=== PATIENT | female | born 1995 | race Caucasian/White ===

== ENCOUNTER 2017-05-11 23:03 | Emergency (ER) | payer BC ==
--- NOTE | 2017-05-12 01:41 | ED ---
Pari Cui SooYoung, scribed for Lawrence Urrutia MD on 05/11/17 at 2343 . Substance Abuse/Use - HPI Summary HPI Summary: LEVEL 5 CAVEAT: HPI LIMITED DUE TO PT CONDITION, ETOH INTOXICATION. A 21 y/o F ARAON presents to ED for ETOH intoxication. Denies other drugs. Pt is visiting friends here in [place]. - History Of Current Complaint Chief Complaint: EDSubstanceAbuse Stated Complaint: ETOH Time Seen by Provider: 05/11/17 23:38 Hx Obtained From: EMS PMH/Surg Hx/FS Hx/Imm Hx Previously Healthy: No - LEVEL 5 CAVEAT: PMHx LIMITED DUE TO PT CONDITION, ETOH INTOXICATION. Infectious Disease History: Denies: Traveled Outside the [place] in Last 30 Days - Family History Family History: LEVEL 5 CAVEAT: FHx LIMITD DUE TO PT CONDITION, ETOH INTOXICATION. - Social History Substance Use Comment - Amount & Last Used: LEVEL 5 CAVEAT: SHx LIMITD DUE TO PT CONDITION, ETOH INTOXICATION. Review of Systems - ROS Summary Review of Systems Summary: LEVEL 5 CAVEAT: ROS LIMITED DUE TO PT CONDITION, ETOH INTOXICATION. Positive: Other - pos: intoxicated All Other Systems Reviewed And Are Negative: Yes Physical Exam Triage Information Reviewed: Yes Vital Signs On Initial Exam: Initial Vitals Temp Pulse Resp BP Pulse Ox 97.7 F 69 18 96/50 95 05/11/17 23:55 05/11/17 23:55 05/11/17 23:55 05/11/17 23:55 05/11/17 23:55 Vital Signs Reviewed: Yes Appearance: Positive: Well-Appearing, No Pain Distress - aob Skin: Positive: Warm Head/Face: Positive: Normal Head/Face Inspection Eyes: Positive: MAKENNA ENT: Positive: Hearing grossly normal Neck: Positive: Supple Respiratory/Lung Sounds: Positive: Clear to Auscultation, Breath Sounds Present Cardiovascular: Positive: RRR Abdomen Description: Positive: Nontender, Soft Musculoskeletal: Positive: Strength/ROM Intact Neurological: Positive: Alert, Oriented to Person Place, Time Psychiatric: Positive: Affect/Mood Appropriate Diagnostics - Vital Signs Vital Signs Temp Pulse Resp BP Pulse Ox 05/11/17 23:55 97.7 F 69 18 96/50 95 - Laboratory Lab Statement: Any lab studies that have been ordered have been reviewed, and results considered in the medical decision making process. Course/Dx - Diagnoses Provider Diagnoses: Alcohol intoxication Discharge - Discharge Plan Condition: Improved Disposition: HOME Patient Education Materials: Alcohol Intoxication (ED) Referrals: No Primary Care Phys,NOPCP [Primary Care Provider] - The documentation as recorded by the Pari rodriguez SooYoung accurately reflects the service I personally performed and the decisions made by me, Lawrence Urrutia MD.
[2017-05-12 02:03] LABS: Alcohol 205 mg/dL (<10)
[2017-05-12 06:02] VITALS: BP 102/55
== END 2017-05-12 06:02 | disposition home or self-care (01) ==
LOC: ED 23:03
DX: F10.129 Alcohol abuse with intoxication, unspecified (principal); Y90.7 Blood alcohol level of 200-239 mg/100 ml; Z32.02 Encounter for pregnancy test, result negative
CPT/HCPCS: 36415; 80320; 84702; 99283; G0480